=== PATIENT | male | born 1985 | race Caucasian/White ===

== ENCOUNTER 2020-08-22 15:07 | Emergency (ER) | payer SELFPAY | END 2020-08-22 18:47 | disposition left against medical advice (07) | PROVIDERS: Emergency Provider Emergency Medicine | DX: Z20.2 Contact with and (suspected) exposure to infections with a predominantly sexual mode of transmission (principal) ==

== ENCOUNTER 2020-08-22 19:02 | Emergency (ER) | payer OTHER, SELFPAY ==
[2020-08-22 19:57] VITALS: BP 140/72; PULSE 68; RESP 16; TEMP 36.6; O2SAT 98; BMI 33.0
[2020-08-22 20:23] LABS: Appearance Urine CLEAR; Color Urine YELLOW; Glucose Urine UA NEG (NEG); Leukocyte Esterase Urine NEG (NEG); Nitrite Urine NEG (NEG); Specific Gravity - Urine >= 1.030 (1.005-1.025); Urine Blood TRACE (NEG); Urine Ketones NEG (NEG); Urine Protein NEG (NEG-TRACE)
[2020-08-22 20:28] LABS: Bacteria Urine TRACE /LPF; RBC Urine 0-2 /HPF (0); WBC Urine 0 /HPF (0-4)
--- NOTE | 2020-08-22 22:01 | ED.MALEGU ---
HPI - Male Genitourinary General Chief complaint: Urogenital-Male Stated complaint: STD testing Time Seen by Provider: 08/22/20 21:05 Source: patient Mode of arrival: ambulatory History of Present Illness HPI Narrative: This is a 34-year-old male without significant past medical history who presents with penile drainage for the past 2 days without associated fevers, chills, scrotal pain and states that he knows Dennis have been engaging in anal sexual relations. Related Data Allergies Allergy/AdvReac Type Severity Reaction Status Date / Time No Known Allergies Allergy Verified 08/22/20 20:00 Review of Systems Review of Systems: Pertinent positives and negatives as stated in HPI 10 point review of systems is otherwise negative. PMFSH Past Medical History Source: nursing notes reviewed Medical History Bipolar 1 disorder Social History Social History Advance Directives: No Advance Directives Information Provided: Yes Physical Exam Vital Signs: Vital Signs: Last Vital Signs Temp 97.9 F 08/22/20 19:57 Pulse 68 08/22/20 19:57 Resp 16 08/22/20 19:57 BP 140/72 H 08/22/20 19:57 Pulse Ox 98 08/22/20 19:57 Body Mass Index 33.0 VITAL SIGNS: Reviewed. GENERAL: Well developed, well nourished, in no acute distress. LUNGS: Normal breath sounds. No adventitious sounds or accessory muscle use. SpO2<98> CARDIOVASCULAR: Regular rate and rhythm without noted murmurs ABDOMEN: Soft, non-tender, non-distended with bowel sounds. MUSCULOSKELETAL: No tenderness, deformities, or effusions noted on gross inspection. : deferred NEUROLOGIC: Alert and oriented x 4. Course Course Course Narrative: This is a 34-year-old male with history and clinical presentation consistent with STI after review of urinalysis is negative for evidence of UTI. Patient was empirically treated instructed to follow up with his primary care provider notify his sexual partners of his treatment. MDM - Male Genitourinary Lab Data Labs: Lab Results 08/22/20 Range/Units 20:10 Urine Color YELLOW Urine Appearance CLEAR Urine pH 6.0 (5.0-8.0) Ur Specific [place] >= 1.030 H (1.005-1.025) Urine Protein NEG (NEG-TRACE) MG/DL Urine Glucose (UA) NEG (NEG) MG/DL Urine Ketones NEG (NEG) MG/DL Urine Blood TRACE (NEG) Urine Nitrite NEG (NEG) Ur Leukocyte Esterase NEG (NEG) Urine RBC 0-2 (0) /HPF Urine WBC 0 (0-4) /HPF Ur Squamous Epith Cells NONE /LPF Urine Bacteria TRACE /LPF Discharge Plan Discharge Clinical Impression: Discharge from penis Patient Disposition: Home, Self-Care Instructions: Sexually Transmitted Diseases (ED) Additional Instructions: Resume all home medications. Must notify your sexual partners regarding your treatment this evening and follow up with her primary care provider for results. Referrals: Physician,Unknown [Primary Care Provider] - 2 days
[2020-08-22] MEDS: cefTRIAXone sodium 500 MG, Lidocaine HCl 1 % MPF 1 ML IM (22:29)
[2020-08-22] MEDS: Azithromycin 500 MG TABLET 1000 MG PO (22:36)
[2020-08-24 09:57] LABS: C. trachomatis RNA TMA NOT DETECTED (NOT DETECTED); N. gonorrhoeae RNA TMA NOT DETECTED (NOT DETECTED)
== END 2020-08-22 22:42 | disposition home or self-care (01) ==
PROVIDERS: Emergency Provider Student in an Organized Health Care Education/Training Program
DX: R36.9 Urethral discharge, unspecified (principal); Z20.2 Contact with and (suspected) exposure to infections with a predominantly sexual mode of transmission
CPT/HCPCS: 36415; 81001; 87491; 87591; 96372; 99284; J0696

== ENCOUNTER 2020-10-03 16:58 | Emergency (ER) | payer OTHER, SELFPAY ==
--- NOTE | ~2020-10-03 | CT_ITS ---
EXAMINATION: CT HEAD WITHOUT CONTRAST CLINICAL INFORMATION: Head injury 2 days ago. Complaint of headaches with unsteady gait. COMPARISON: None TECHNIQUE: Contiguous axial imaging was performed from the skull base to vertex without intravenous administration of contrast. This CT examination was performed using dose optimization techniques as appropriate, variously including the following: *Automated exposure control *Adjustment of mA and/or kV according to patient size (this includes techniques or standardized protocols for targeted exams where dose is matched to indication/reason for exam; i.e. extremities or head) *Use of iterative reconstruction technique DLP: 705 mGy-cm FINDINGS: There is no evidence of acute intracranial hemorrhage or territorial infarction. No abnormal mass effect or midline shift is seen. Baltazar to white matter differentiation is well preserved. No extra-axial fluid collections are identified. The ventricles are normal in size. There is no abnormal attenuation within the brain parenchyma. The osseous structures and soft tissues are normal. The mastoid air cells and visualized portions of the paranasal sinuses are well aerated. CT/CT head/brain wo con IMPRESSION: No acute intracranial pathology.
[2020-10-03 17:11] VITALS: BP 109/73; PULSE 69; RESP 18; TEMP 36.9; O2SAT 98; BMI 33.0
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
[2020-10-03 18:38] LABS: MANUAL DIFF FLAG NO
[2020-10-03 18:43] LABS: Basophils Absolute Auto 0.1 X10*3/uL (0.0-0.2); Basophils Percent Auto 0.7 % (0-2); Eosinophils Absolute Auto 0.3 X10*3/uL (0.0-0.4); Eosinophils Percent Auto 3.1 % (0-4); Hematocrit 44.5 % (42-52); Hemoglobin 15.1 g/dl (14.0-18.0); Imm Gran Abs Auto 0.03 X10*3/uL (0.00-0.03); Imm Gran Pct Auto 0.3 % (0.0-0.4); Lymphocytes Percent Auto 40.5 % (20-40); Mean Corpuscular HGB Conc 33.9 g/dl (31.0-36.0); Mean Corpuscular Hemoglobin 29.8 pg (27.0-33.0); Mean Corpuscular Volume 87.9 fL (80-98); Mean Platelet Volume 9.9 fL (9.4-12.4); Monocytes Absolute Auto 0.7 X10*3/uL (0.1-1.2); Monocytes Percent Auto 7.1 % (2-11); Neutrophils Absolute Auto 4.7 X10*3/uL (2.0-8.3); Neutrophils Percent Auto 48.3 % (45-73); Platelet Count 201 X10*3/uL (160-400); Red Blood Count 5.06 X10*6/uL (4.60-5.80); Red Cell Distribution Width 12.2 % (11.0-16.0); White Blood Count 9.8 X10*3/uL (4.8-10.8)
[2020-10-03 18:59] VITALS: BP 127/70; PULSE 65; RESP 18; TEMP 36.7; O2SAT 98
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
[2020-10-03 19:15] LABS: Alanine Aminotransferase 54 U/L (0-40); Albumin Level 4.8 g/dL (3.5-5.0); Alkaline Phosphatase 65 U/L (39-117); Anion Gap 13 (12-20); Aspartate Amino Transferase 36 U/L (5-37); Bilirubin Direct < 0.2 mg/dL (0.0-0.5); Bilirubin Total 0.5 mg/dL (0.0-1.0); Blood Urea Nitrogen 11 mg/dL (9-16); Calcium 9.6 mg/dL (8.4-10.2); Carbon Dioxide 30 mmol/L (22-29); Chloride 100 mmol/L (96-108); Creatinine Clr Calc Pharmacy 166.6; Estimated Glomerular Filt Rate > 60; Glucose Random 87 mg/dL (60-115); Magnesium 2.1 mg/dL (1.6-2.6); Potassium 4.3 mmol/L (3.3-5.1); Sodium 139 mmol/L (135-145); Total Protein 7.6 g/dL (6.5-8.0)
[2020-10-03 20:00] VITALS: BP 121/85; PULSE 72; RESP 18; O2SAT 98
[2020-10-03 20:04] LABS: Glucose Urine UA NEG (NEG); Leukocyte Esterase Urine NEG (NEG); Nitrite Urine NEG (NEG); PH 6.5 (5.0-8.0); Specific Gravity - Urine 1.025 (1.005-1.025); Urine Blood TRACE (NEG); Urine Ketones NEG (NEG); Urine Protein NEG (NEG-TRACE)
[2020-10-03 20:21] LABS: Appearance Urine HAZY; Color Urine YELLOW
[2020-10-03 20:27] LABS: Amorphous Sediment Urine 3+ /LPF; Mucus Urine TRACE /LPF; Squamous Epithelial Cell Urine TRACE /LPF; WBC Urine 0-2 /HPF (0-4)
[2020-10-03 20:30] LABS: Amphetamine Screen Urine Not Detected (Not Detect); Barbiturates, Urine Not Detected (Not Detect); Benzodiazepines Screen Urine Not Detected (Not Detect); Cannabinoid Screen Urine POSITIVE (Not Detect); Cocaine Screen Urine POSITIVE (Not Detect); Opiate Screen Urine Not Detected (Not Detect); Phencyclidine Screen Urine Not Detected (Not Detect)
== END 2020-10-03 20:29 | disposition home or self-care (01) ==
PROVIDERS: Emergency Provider Emergency Medicine
DX: R25.3 Fasciculation (principal); S06.0X0A Concussion without loss of consciousness, initial encounter; W22.09XA Striking against other stationary object, initial encounter; F31.9 Bipolar disorder, unspecified; F14.10 Cocaine abuse, uncomplicated; F17.200 Nicotine dependence, unspecified, uncomplicated; F12.90 Cannabis use, unspecified, uncomplicated; Y93.9 Activity, unspecified; Y92.032 Bedroom in apartment as the place of occurrence of the external cause; Y99.9 Unspecified external cause status
CPT/HCPCS: 36415; 70450; 80048; 80076; 80307; 81001; 81003; 83735; 85025; 99284

== ENCOUNTER 2020-10-07 10:40 | Emergency (ER) | payer OTHER, SELFPAY ==
[2020-10-07 10:57] VITALS: BP 127/74; PULSE 76; RESP 16; TEMP 36.4; O2SAT 97; BMI 33.0
--- NOTE | 2020-10-07 11:08 | ED.GENADULT ---
HPI - General Adult General Chief complaint: General Medical Stated complaint: FOLLOW UP CONCUSSION Time Seen by Provider: 10/07/20 10:52 Source: patient Mode of arrival: ambulatory History of Present Illness HPI narrative: 34-year-old male with a recent past medical history of , bipolar disorder, concussion seen in our ED on 10/03/[address], presenting to the ED for medical clearance to return back to work. Reports symptomatic improvement. Does report fluctuation in mood swings which he has had in the past which he was seeing a therapist for many years ago, however, seems to have resurfaced now. Also reports Valium he was prescribed for diffuse body twitching/stuttering was aiding in symptoms, requesting refill. Denies headache, visual change/loss, nausea/vomiting, numbness, tingling, weakness Onset (ago): day(s) Related Data Previous Rx's Medication Instructions Recorded diazepam [Valium] 2 mg PO BID #5 tab 10/03/20 Allergies Allergy/AdvReac Type Severity Reaction Status Date / Time No Known Allergies Allergy Verified 08/22/20 20:00 Review of Systems Review of Systems: Constitutional: No Fever, No Chills, No Fatigue, No Malaise ENT/Mouth: No Ear Pain, No sore throat, No Rhinorrhea Eyes: No Eye Pain, No Vision Changes Gastrointestinal: No Nausea, No Vomiting Musculoskeletal: No joint pain, No Myalgias Skin: No Skin Lesions, No rash Neuro: No Weakness, No Numbness, No Paresthesias, No Loss of Consciousness, No Dizziness, No Headache Psych: No Anxiety/Panic Neurologic: Denies Abnormal speech present [facility] Past Medical History Attestation statement: The following information was validated with the patient. Medical History (Updated 10/07/20 @ 11:20 by KARTIK Clifford) Bipolar 1 disorder History of substance abuse Social History Social History Advance Directives: No Advance Directives Information Provided: No Physical Exam Vital Signs: Vital Signs: Last Vital Signs Temp 97.5 F 10/07/20 10:57 Pulse 76 10/07/20 10:57 Resp 16 10/07/20 10:57 BP 127/74 10/07/20 10:57 Pulse Ox 97 10/07/20 10:57 Body Mass Index 33.0 Const: General: cooperative, healthy appearing, comfortable, no acute distress, well developed, alert, awake and Physically active Orientation/consciousness: patient oriented x3 Limitations: no limitations HENMT: Head: Yes normal to inspection Ears: hearing grossly normal bilaterally General nose exam: Normal external nose present Face and sinus: Yes normal facial exam Mouth: Normal oral and palatal mucosa present Throat: Yes posterior oropharynx normal Eyes: General: appearance normal, both eyes and all related structures Pupils: Equal, round and reactive pupils present EOM: EOMs intact bilaterally Neck: Neck: Yes normal visual inspection and Yes no meningeal signs Resp: Effort & Inspection: normal respiratory effort Cardio: Rate: regular rate Skin: Rashes: no rashes Wounds: no wounds Neuro: General: patient oriented x3, gait normal, tone normal, moves all extremities, no meningeal signs, no focal motor deficits and CN's II-XI intact bilaterally Cranial nerves: Yes Equal, round and reactive pupils present Cognition (Neuro): normal cognition Speech: No Abnormal speech present Gait exam (Neuro): Normal gait present Motor exam (neuro): 5/5 motor strength present throughout Extrem: General: Yes normal to inspection Medical Decision Making MDM Narrative Medical decision making narrative: 34-year-old male with a recent past medical history of , bipolar disorder, concussion seen in our ED on 10/03/[address], presenting to the ED for medical clearance to return back to work. On exam VSS, NAD/well-appearing, no focal neuro deficits, atraumatic. Patient clear to removed return to work, likely post concussive syndrome/acute on chronic anxiety/mood disorder or drug-induced mood changes Head CT and labs reviewed from 10/03 that were WNL Discussed with patient that he needs to follow-up with PCP. Unlikely ICH/metabolic/infectious etiology Discharge Plan Discharge Clinical Impression: Encounter for medical screening examination Patient Disposition: Home, Self-Care Instructions: Normal Exam (ED) Additional Instructions: Follow-up with your primary care doctor, injury therapist Take Tylenol & Motrin at home for headache If you develop constant worsening headache, lightheadedness/dizziness, persistent or unremitting nausea/vomiting return to the ED Prescriptions: No Action diazepam [Valium] 2 mg tablet 2 mg PO BID Qty: 5 RF: 0 Referrals: Physician,Unknown [Primary Care Provider] - 2 days Stand Alone Forms: Work/School Release
== END 2020-10-07 11:34 | disposition home or self-care (01) ==
PROVIDERS: Emergency Provider Emergency Medicine Emergency Medical Services
DX: Z02.79 Encounter for issue of other medical certificate (principal); F19.10 Other psychoactive substance abuse, uncomplicated
CPT/HCPCS: 99283

== ENCOUNTER 2020-10-09 03:15 | Emergency (ER) | payer OTHER, SELFPAY ==
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
[2020-10-09 03:22] VITALS: BP 134/86; PULSE 76; RESP 20; O2SAT 98; BMI 26.4
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
[2020-10-09 03:57] VITALS: RESP 18
== END 2020-10-09 05:05 | disposition home or self-care (01) ==
PROVIDERS: Emergency Provider Emergency Medicine
DX: S09.90XA Unspecified injury of head, initial encounter (principal); S01.311A Laceration without foreign body of right ear, initial encounter; X99.0XXA Assault by sharp glass, initial encounter; Y93.9 Activity, unspecified; Y92.9 Unspecified place or not applicable; Y99.9 Unspecified external cause status; F17.200 Nicotine dependence, unspecified, uncomplicated; F12.90 Cannabis use, unspecified, uncomplicated; F19.10 Other psychoactive substance abuse, uncomplicated
CPT/HCPCS: 70450; 99284

== ENCOUNTER 2021-05-23 07:22 | Outpatient (REF) | payer OTHER, SELFPAY ==
[2021-05-23 08:03] LABS: COVID-19 Test Negative (Negative)
== END 2021-05-23 07:23 | disposition home or self-care (01) ==
LOC: HO.LAB 07:22
PROVIDERS: Visit Provider Internal Medicine
DX: Z20.822 Contact with and (suspected) exposure to COVID-19 (principal)
CPT/HCPCS: 36415; 87635; C9803

== ENCOUNTER 2021-07-01 16:29 | Emergency (ER) | payer SELFPAY ==
[2021-07-01 16:38] VITALS: BP 155/86; PULSE 111; RESP 18; TEMP 36.7; O2SAT 99; BMI 33.0
--- NOTE | 2021-07-01 16:49 | ED_ITS ---
HPI - Wound/Laceration General Chief Complaint: Wound/Laceration Stated Complaint: arm lac Time Seen by Provider: 07/01/21 16:44 Source: patient Mode of arrival: ambulatory Limitations: no limitations History of Present Illness HPI narrative: 35 yo male here with laceration to right forearm after a broken dish cut him. Tetanus status unknown Related Data Previous Rx's Medication Instructions Recorded diazepam 2 mg tablet (Valium) 2 mg PO BID #5 tab 10/03/20 Allergies Allergy/AdvReac Type Severity Reaction Status Date / Time No Known Allergies Allergy Verified 08/22/20 20:00 Review of Systems Review of Systems: Yes all other systems are reviewed and are negative Constitutional: Constitutional: Reports no additional constitutional complaints, Denies body ache(s), Denies chills, Denies fever(s), Denies headache(s) and Denies weakness Eyes: Eyes: Reports no additional eye complaints and Denies change in vision ENT: Reports system reviewed and no additional complaints, except as documented, Denies dizziness, Denies headache(s), Denies nasal congestion, Denies nasal discharge and Denies neck pain Cardiovascular: Cardiovascular: Reports no additional cardiovascular complaints, Denies chest pain, Denies leg edema and Denies dyspnea Respiratory: Respiratory: Reports no additional respiratory complaints, Denies cough and Denies dyspnea Gastrointestinal: Gastrointestinal: Reports no additional gastrointestinal complaints, Denies abdominal pain, Denies diarrhea, Denies nausea and Denies vomiting Genitourinary: Genitourinary: Denies urinary incontinence Musculoskeletal: Musculoskeletal: Reports no additional musculoskeletal complaints, Denies back pain, Denies arthralgias, Denies joint swelling, Denies neck pain, Denies numbness and Denies tingling Integumentary/Breasts: Skin/Breast: Reports system reviewed and no additional complaints, except as docu and Denies rash Neurologic: Reports system reviewed and no additional complaints, except as documented, Denies Abnormal speech present, Denies dizziness, Denies headache(s), Denies numbness, Denies tingling and Denies weakness PMFSH Past Medical History Attestation statement: The following information was validated with the patient. Source: old records reviewed and nursing notes reviewed Medical History Bipolar 1 disorder History of substance abuse Social History Social History Substance Use Type: Marijuana Advance Directives: No Advance Directives Information Provided: No Physical Exam Vital Signs: Vital Signs: Last Vital Signs Temp 98.0 F 07/01/21 16:38 Pulse 84 07/01/21 17:43 Resp 17 07/01/21 17:43 BP 155/86 H 07/01/21 16:38 Pulse Ox 97 07/01/21 17:43 BMI result Body Mass Index 33.0 Const: General: cooperative, healthy appearing, comfortable and no acute distress Orientation/consciousness: patient oriented x3 Limitations: no limitations HENMT: Head: Yes normal to inspection Ears: hearing grossly normal bilaterally General nose exam: Normal external nose present Face and sinus: Yes normal facial exam Mouth: Normal oral and palatal mucosa present Throat: Yes posterior oropharynx normal Eyes: General: appearance normal, both eyes and all related structures Pupils: Equal, round and reactive pupils present Neck: Neck: Yes normal visual inspection Chest: Chest palpation & inspection: normal inspection of the chest Resp: Effort & Inspection: normal respiratory effort Auscultation: clear to auscultation bilaterally Cardio: Rate: regular rate Rhythm: regular rhythm Peripheral pulses: Peripheral pulses 2+ throughout GI: Inspection: Yes normal to inspection Palpation (GI): Soft to palpation and nontender Auscultation: normal bowel sounds Back/Spine/Pelvis: Thoracic/Lumbar Spine: thoracic and lumbar spine normal to inspection Skin: General skin exam: no rashes or lesions noted Neuro: General: patient oriented x3, no focal motor deficits and normal sensation to monofilament Cranial nerves: Yes Equal, round and reactive pupils present Cognition (Neuro): normal cognition Speech: No Abnormal speech present Gait exam (Neuro): Normal gait present Motor exam (neuro): 5/5 motor strength present throughout Extrem: General: Yes normal to inspection Elbow/forearm/wrist images: 1. laceration 8cm into sub Q tissue. bleeding co ntrolled Course Course Course Narrative: Lacerations to right forearm from a broken plate. Neurovascular intact distally See wound repair note. Will update tetanus. Reviewed worrisome signs and symptoms when to return to the emergency department. Comfortable discharge home. MDM - Wound/Laceration Medical Records Attestation: I reviewed the patient's medical records. Lab Data Attestation: I reviewed the patient's lab results. Procedures Laceration Laceration 1: Site: upper extremity Side (If applicable): right Size (cm): 8 Description: linear and clean Depth: simple, single layer (involves SQ tissue ) Local Anesthetic: lidocaine 2% Amount of anesthesia used (mL): 10 Pre-repair: wound explored, irrigated extensively and deep structures intact Skin layer closed with: vicryl Size (cm): 4-0 Number of sutures: 10 Technique: simple, interrupted Subcutaneous layer closed with: chromic gut Size: 4-0 Number of sutures: 6 Technique: simple, interrupted Discharge Plan Discharge Clinical Impression: Laceration Patient Disposition: Home, Self-Care Instructions: Laceration (ED) Additional Instructions: Sutures out in 10 days Water can run over the sutures but no soaking in water Limit use of the right upper extremity for a few days Prescriptions: No Action diazepam [Valium] 2 mg tablet 2 mg PO BID Qty: 5 RF: 0 Interventions: ED Discharge Assessment Last Done: 07/01/21 17:50 Discharge Date/Time: 07/01/21 17:51
[2021-07-01] MEDS: Lidocaine HCl 2 % MPF 5 ML VIAL SUBCUT ×2 (16:54)
[2021-07-01] MEDS: Diphth,Pertus(ACell),Tet Adult 0.5 ML SYRINGE IM (17:40)
[2021-07-01 17:43] VITALS: PULSE 84; RESP 17; O2SAT 97
== END 2021-07-01 17:51 | disposition home or self-care (01) ==
LOC: HO.ED 17:05
PROVIDERS: Emergency Provider Emergency Medicine
DX: S51.811A Laceration without foreign body of right forearm, initial encounter (principal); W25.XXXA Contact with sharp glass, initial encounter; Y93.9 Activity, unspecified; Y92.9 Unspecified place or not applicable; Y99.9 Unspecified external cause status
CPT/HCPCS: 12034; 90471; 90715; 99283; 99284

== ENCOUNTER 2021-08-01 09:36 | Outpatient (REF) | payer SELFPAY ==
[2021-08-01 10:50] LABS: Binax Internal Control QC Valid; Binax Now Covid-19 Ag Negative (Negative)
== END 2021-08-01 09:37 | disposition home or self-care (01) ==
LOC: HO.LAB 09:36
PROVIDERS: Visit Provider Internal Medicine
DX: Z20.822 Contact with and (suspected) exposure to COVID-19 (principal)
CPT/HCPCS: C9803

== ENCOUNTER 2021-08-07 10:44 | Outpatient (REF) | payer OTHER, SELFPAY ==
[2021-08-07 12:00] LABS: COVID-19 Test Negative (Negative)
== END 2021-08-07 10:45 | disposition home or self-care (01) ==
LOC: HO.LAB 10:44
PROVIDERS: Visit Provider Internal Medicine
DX: Z20.822 Contact with and (suspected) exposure to COVID-19 (principal)
CPT/HCPCS: 87635; C9803

== ENCOUNTER 2023-05-13 05:58 | Emergency (ER) | payer MEDICAID, SELFPAY ==
--- NOTE | ~2023-05-13 | CT_ITS ---
EXAMINATION: CT HEAD WITHOUT CONTRAST CLINICAL INFORMATION: Headache, head strike. COMPARISON: Head CT from 10/09/2020 TECHNIQUE: Contiguous axial imaging was performed from the skull base to vertex without intravenous administration of contrast. This CT examination was performed using dose optimization techniques as appropriate, variously including the following: *Automated exposure control *Adjustment of mA and/or kV according to patient size (this includes techniques or standardized protocols for targeted exams where dose is matched to indication/reason for exam; i.e. extremities or head) *Use of iterative reconstruction technique DLP: 762 mGy-cm FINDINGS: The brain parenchyma has normal attenuation. The lares-white matter differentiation is well preserved. No evidence of an acute major vascular territory infarction. No intracranial hemorrhage, extra-axial fluid collection, focal mass effect or midline shift. The ventricles have normal size and configuration; no hydrocephalus. The brainstem and cerebellum have a normal appearance. The cerebellar tonsils are in normal position. The calvarium is intact. There appears to be a small subgaleal hematoma in the parietal region near the vertex of the scalp (image 73, series 2). The paranasal sinuses, mastoid air cells and middle ear cavities are well aerated. The orbits and globes are unremarkable. The temporomandibular joints are normal. CT/CT head/brain wo IV con IMPRESSION: * No intracranial hemorrhage or other acute intracranial pathology. * Small subgaleal hematoma is seen near the vertex of the scalp (image 73, series 2).
[2023-05-13 06:09] VITALS: BP 135/81; PULSE 66; RESP 12; TEMP 36.6; O2SAT 93; BMI 34.3
[2023-05-13 07:18] LABS: MANUAL DIFF FLAG NO
[2023-05-13 07:26] LABS: Basophils Absolute Auto 0.1 X10*3/uL (0.0-0.2); Basophils Percent Auto 0.9 % (0-2); Eosinophils Absolute Auto 0.4 X10*3/uL (0.0-0.4); Eosinophils Percent Auto 4.8 % (0-4); Hematocrit 43.8 % (42.0-52.0); Hemoglobin 15.5 g/dl (14.0-18.0); Imm Gran Abs Auto 0.03 X10*3/uL (0.00-0.03); Imm Gran Pct Auto 0.4 % (0.0-0.4); Lymphocytes Absolute Auto 3.8 X10*3/uL (1.2-4.9); Lymphocytes Percent Auto 46.9 % (20-40); Mean Corpuscular HGB Conc 35.4 g/dl (31.0-36.0); Mean Corpuscular Hemoglobin 30.2 pg (27.0-33.0); Mean Corpuscular Volume 85.4 fL (80.0-98.0); Mean Platelet Volume 10.2 fL (9.4-12.4); Monocytes Absolute Auto 0.6 X10*3/uL (0.1-1.2); Monocytes Percent Auto 7.7 % (2-11); Neutrophils Absolute Auto 3.2 x10*3/uL (2.0-8.3); Neutrophils Percent Auto 39.3 % (45-73); Platelet Count 190 X10*3/uL (160-400); Red Blood Count 5.13 X10*6/uL (4.60-5.80); Red Cell Distribution Width 12.3 % (11.0-16.0); White Blood Count 8.2 X10*3/uL (4.8-10.8)
[2023-05-13 07:50] LABS: Alanine Aminotransferase 19 U/L (0-40); Albumin Level 4.4 g/dL (3.5-5.0); Alkaline Phosphatase 75 U/L (39-117); Anion Gap 12 (12-20); Aspartate Amino Transferase 17 U/L (5-37); Bilirubin Total 0.4 mg/dL (0.0-1.0); Blood Urea Nitrogen 13 mg/dL (9-16); Calcium 9.3 mg/dL (8.4-10.2); Carbon Dioxide 25 mmol/L (22-29); Chloride 107 mmol/L (96-108); Creatinine Clr Calc Pharmacy 163.1; Estimated Glomerular Filt Rate > 60; Glucose Random 109 mg/dL (60-115); Potassium 4.1 mmol/L (3.3-5.1); Sodium 140 mmol/L (135-145); Total Protein 7.3 g/dL (6.5-8.0)
[2023-05-13 11:07] VITALS: BP 121/80; PULSE 60; RESP 18; O2SAT 98
[2023-05-13] MEDS: 0.9 % Sodium Chloride 1,000 ML 999 ML IV (12:03)
--- NOTE | 2023-05-13 12:20 | ED_ITS ---
HPI - General Adult General Chief complaint: General Medical Stated complaint: head pain, dizziness Time Seen by Provider: 05/13/23 11:31 Source: patient and RN notes reviewed Mode of arrival: ambulatory Limitations: no limitations History of Present Illness HPI narrative: This is a 37-year-old male presenting to the emergency department with complaints of head pressure, blurred vision x2 weeks. Patient states that 2 weeks ago he struck the top of his head while at work. Denies loss of consciousness. He states that intermittently he has had left-sided head pain and blurred vision. He states that yesterday he then hit his head again. He denies loss of consciousness after this head injury. He states that he is feeling shaky and is also having some stuttering problems. He states that he has a history of concussions and states that his symptoms feel similar. He also reports history of migraines and states that his pain is much different than migraines he has had in the past. Patient also endorsing nasal congestion and runny nose. Also reports some mild shortness of breath since yesterday. He has been taking aspirin for his symptoms which has provided him with minimal relief. MD complaint: Headache, blurred vision, shakiness Onset (ago): week(s) Radiation: non-radiation Quality: aching Pain Consistency: constant Relieving factors: none Exacerbating factors: none Associated symptoms: denies other symptoms Treatments prior to arrival: none Related Data Previous Rx's Medication Instructions Recorded diazepam 2 mg tablet (Valium) 2 mg PO BID #5 tabs 10/03/20 Allergies Allergy/AdvReac Type Severity Reaction Status Date / Time No Known Allergies Allergy Verified 08/22/20 20:00 Review of Systems 2 Review of Systems: Yes all other systems are reviewed and are negative Constitutional: Constitutional: Reports as per [facility] Past Medical History Medical History Bipolar 1 disorder History of substance abuse Social History Social History Substance Use Type: Marijuana Advance Directives: No Advance Directives Information Provided: No Physical Exam ED Vital Signs: Vital Signs - 24 hr 05/13/23 06:09 05/13/23 11:07 05/13/23 14:12 Temperature 97.8 F Pulse Rate 66 60 57 Respiratory Rate 12 18 16 Blood Pressure 135/81 121/80 99/62 Pulse Oximetry 93 98 99 Oxygen Delivery Method Room Air Room Air Room Air BMI result Body Mass Index 34.3 Const General: cooperative, comfortable and no acute distress Orientation/consciousness: patient oriented x3 Limitations: no limitations [facility] Head: Yes normal to inspection, Yes normocephalic and Yes atraumatic Ears: hearing grossly normal bilaterally General nose exam: Normal external nose present Face and sinus: Yes normal facial exam Mouth: Normal oral and palatal mucosa present, oropharynx normal and moist mucous membranes Throat: Yes posterior oropharynx normal Eyes General: appearance normal, both eyes and all related structures Eyelids: Yes eyelids normal Conjunctivae: conjunctivae normal Sclerae: sclerae normal Pupils: Equal, round and reactive pupils present EOM: EOMs intact bilaterally Neck Neck: Yes normal visual inspection, Yes full ROM and Yes no lymphadenopathy Lymphatic: no lymphadenopathy noted Chest Chest palpation & inspection: normal inspection of the chest Resp Effort & Inspection: normal respiratory effort and able to speak in complete sentences Auscultation: clear to auscultation bilaterally, no crackles, no rales, no rhonchi and no wheezes Cardio Rate: regular rate Rhythm: regular rhythm Heart sounds: S1 normal heart sound present and S2 normal heart sound present GI Inspection: Yes normal to inspection Skin General skin exam: no rashes or lesions noted Trauma: no lacerations or abrasions Wounds: no wounds Neuro General: patient oriented x3 and moves all extremities Cranial nerves: Yes CN's II-XII intact bilaterally, Yes Facial sensation intact/muscles of mastication intact, Yes Equal, round and reactive pupils present, Yes Nystagmus not present, Yes Ability to bilaterally rotate head present and Yes Ability to bilaterally elevate shoulders present Cognition (Neuro): normal cognition Motor exam (neuro): 5/5 motor strength present throughout and Pronator motor function not present Coordination: [id number] test normal and [id number]-[id number] test normal Extrem General: Yes normal to inspection Right upper extremity: normal to inspection Left upper extremity: normal to inspection Right lower extremity: normal to inspection Left lower extremity: normal to inspection Course Reevaluation(s) Reevaluation #1: CT head returns, no intracranial hemorrhage or acute intracranial pathology. There is a small hematoma seen at the vertex of the scalp, otherwise unremarkable. Discussed findings with patient. He is having 8/10 headache pain. Will medicate patient with IV Toradol, Reglan, and Benadryl. Time: 13:18 Reevaluation #2: Patient feeling much better after receiving migraine cocktail. Discussed return precautions. Patient understands and agrees with plan. Advised to perform physical and mental rest. Patient understands and agrees with plan. Advised to follow-up with primary care physician. Patient understands agrees with plan. Patient stable for discharge. Time: 15:15 Medications Administered Discontinued Medications Generic Name Dose Route Start Last Admin Trade Name Freq PRN Reason Stop Dose Admin Diphenhydramine HCl 50 mg 05/13/23 13:16 05/13/23 13:56 Diphenhydramine Hcl 50 Mg/Ml Vial IVPUSH 05/13/23 13:17 50 mg ONCE ONE Administration Sodium Chloride 1,000 mls @ 999 mls/hr 05/13/23 11:48 05/13/23 13:16 Ns IV 05/13/23 12:48 Infused .Q1H1M ONE Infusion Ketorolac Tromethamine 30 mg 05/13/23 13:16 05/13/23 13:56 Ketorolac Tromethamine 30 Mg/Ml Vial IVPUSH 05/13/23 13:17 30 mg ONCE ONE Administration Metoclopramide HCl 10 mg 05/13/23 13:16 05/13/23 13:55 Metoclopramide Hcl 10 Mg/2 Ml Vial IVPUSH 05/13/23 13:17 10 mg ONCE ONE Administration Medical Decision Making Medical Decision Making MDM Narrative: This is a 37-year-old male presenting to the emergency department for evaluation of head pressure and blurred vision. He states that he hit his head 2 weeks ago and has had intermittent headaches since. He also reports that he struck his head yesterday again. No loss of consciousness. On examination, vital signs within normal limits. Patient is neurologically intact however upon ambulation patient is very wobbly. Given 2 episodes of head injury, will obtain CT head for further evaluation. Differential Diagnosis Differential Diagnoses: The differential diagnosis associated with the presentation includes Admission/Observation Consideration of admission/observation: Escalation of care including admission/observation considered Lab Data MDM Lab Attestation statement: I reviewed the patient's lab results. 05/13/23 07:13 05/13/23 07:13 Labs: Lab Results 05/13/23 05/13/23 Range/Units 07:13 12:03 WBC 8.2 (4.8-10.8) X10*3/uL RBC 5.13 (4.60-5.80) X10*6/uL Hgb 15.5 (14.0-18.0) g/dl Hct 43.8 (42.0-52.0) % MCV 85.4 (80.0-98.0) fL MCH 30.2 (27.0-33.0) pg MCHC 35.4 (31.0-36.0) g/dl RDW 12.3 (11.0-16.0) % Plt Count 190 (160-400) X10*3/uL MPV 10.2 (9.4-12.4) fL Immature Gran % (Auto) 0.4 (0.0-0.4) % Neut % (Auto) 39.3 L (45-73) % Lymph % (Auto) 46.9 H (20-40) % [place] % (Auto) 7.7 (2-11) % Eos % (Auto) 4.8 H (0-4) % Baso % (Auto) 0.9 (0-2) % Lymph # (Auto) 3.8 (1.2-4.9) X10*3/uL [place] # (Auto) 0.6 (0.1-1.2) X10*3/uL Eos # (Auto) 0.4 (0.0-0.4) X10*3/uL Baso # (Auto) 0.1 (0.0-0.2) X10*3/uL Abs Immat Gran (auto) 0.03 (0.00-0.03) X10*3/uL Absolute Neuts (auto) 3.2 (2.0-8.3) x10*3/uL Absolute Nucleated RBC 0.000 (0.0-0.012) X10*3/uL Nucleated RBC % (auto) 0.0 (0.0-0.2) /100WBC Sodium 140 (135-145) mmol/L Potassium 4.1 (3.3-5.1) mmol/L Chloride 107 (96-108) mmol/L Carbon Dioxide 25 (22-29) mmol/L Anion Gap 12 (12-20) BUN 13 (9-16) mg/dL Creatinine 0.85 (0.5-1.4) mg/dL Estim Creat Clear Calc 163.1 Estimated GFR > 60 Random Glucose 109 (60-115) mg/dL Calcium 9.3 (8.4-10.2) mg/dL Total Bilirubin 0.4 (0.0-1.0) mg/dL AST 17 (5-37) U/L ALT 19 (0-40) U/L Alkaline Phosphatase 75 (39-117) U/L Total Protein 7.3 (6.5-8.0) g/dL Albumin 4.4 (3.5-5.0) g/dL Influenza Type A (PCR) NEGATIVE (Negative) Influenza Type B (PCR) NEGATIVE (Negative) RSV RNA Qual (PCR) NEGATIVE (Negative) SARS-CoV-2 RNA (RT-PCR) NEGATIVE (Negative) Radiology Impression Discussion of test interpretation with radiology: I have reviewed the radiologist's reading. External Record Review External record reviewed: Inpatient record, Office record, Outpatient record, Prior outpatient labs, Prior outpatient radiology, Primary care record and Outside ED record Discharge Plan Discharge Clinical Impression: Closed head injury, Headache Patient Disposition: Home, Self-Care Instructions: Head Injury (ED), Acute Headache (ED) Additional Instructions: Your head CT was normal today. You tested negative for flu, RSV, and COVID. Your labs were reassuring today. Your symptoms improved after receiving a migraine cocktail. This contained Toradol (which is a type of NSAID), with Reglan, and Benadryl. Avoid ibuprofen or naproxen until the end of the day. You may take Tylenol as needed for pain. Please rest, drink plenty of fluids. Physical and mental rest will help heal your brain faster. Please call your primary care physician regarding this visit. If any new or worsening symptoms occur including but not limited to worsening headache, dizziness, changes in vision, weakness, numbness, chest pain or shortness of breath, please return for re-evaluation. Prescriptions: No Action diazepam [Valium] 2 mg tablet 2 mg PO BID Qty: 5 0RF
[2023-05-13 12:46] LABS: Influenza A PCR NEGATIVE (Negative); Influenza B PCR NEGATIVE (Negative); Resp Syncy Virus RNA Qual PCR NEGATIVE (Negative); SARS COV2 PCR INHOUSE NEGATIVE (Negative)
[2023-05-13] MEDS: Metoclopramide HCl 10 MG/2 ML VIAL IVPUSH (13:55)
[2023-05-13] MEDS: diphenhydrAMINE HCL 50 MG/ML VIAL IVPUSH (13:56)
[2023-05-13] MEDS: Ketorolac Tromethamine 30 MG/ML VIAL IVPUSH (13:56)
[2023-05-13 14:12] VITALS: BP 99/62; PULSE 57; RESP 16; O2SAT 99
[2023-05-13 15:30] VITALS: BP 120/71; PULSE 61; RESP 18; TEMP 36.6; O2SAT 99
== END 2023-05-13 15:36 | disposition home or self-care (01) ==
PROVIDERS: Physician Assistant Medical; Emergency Provider Emergency Medicine
DX: S09.90XA Unspecified injury of head, initial encounter (principal); R51.9 Headache, unspecified; R42 Dizziness and giddiness; H53.8 Other visual disturbances; Y29.XXXA Contact with blunt object, undetermined intent, initial encounter; Y93.9 Activity, unspecified; Y92.9 Unspecified place or not applicable; Y99.0 Civilian activity done for income or pay; Z20.822 Contact with and (suspected) exposure to COVID-19; Z20.828 Contact with and (suspected) exposure to other viral communicable diseases
CPT/HCPCS: 0241U; 36415; 70450; 80053; 85025; 96361; 96374; 96375; 99284; J1200; J1885; J2765

== ENCOUNTER 2024-08-04 11:48 | Emergency (ER) | payer OTHER, SELFPAY ==
--- NOTE | ~2024-08-04 | XR_ITS ---
EXAMINATION: XR CHEST CLINICAL INFORMATION: coughing. pneumonia? COMPARISON: X-ray dated June 16, 2018. TECHNIQUE: Frontal view of the chest was obtained. FINDINGS: No consolidation pleural effusion or pneumothorax. No hyperinflation. Cardiomediastinal silhouette is normal in size. Osseous structures are grossly intact. XR/XR chest 1V IMPRESSION: No acute airspace disease. Stable chest. Electronically signed by: Asael Penaloza MD 08/04/2024 12:39 PM EST
[2024-08-04 12:09] VITALS: BP 125/55; PULSE 65; RESP 20; TEMP 36.3; O2SAT 98; BMI 34.3
--- NOTE | 2024-08-04 12:11 | ED.GENADULT ---
HPI - General Adult General Chief complaint: Upper Respiratory Symptoms Stated complaint: Facial pressure, blurry vision, nausea Time Seen by Provider: 08/04/24 13:48 Source: patient Mode of arrival: ambulatory Limitations: no limitations History of Present Illness ED Provider: Jatin Schwartz HPI narrative: 38-year-old male presents to ED for headache, nasal congestion, coughing, chills, and body aches for 3 days. Patient denies any shortness of breath. Patient denies any recent long travel, recent surgery, calf pain, pleurisy, abdominal pain, weakness, nausea, vomiting, or any genitourinary symptoms. Related Data Previous Rx's ?Medication ?Instructions ?Recorded diazepam 2 mg tablet (Valium) 2 mg PO BID #5 tabs 10/03/20 Allergies Allergy/AdvReac Type Severity Reaction Status Date / Time No Known Allergies Allergy Verified 08/04/24 12:11 Review of Systems Review of Systems: Headache, congestion, cough, chills, body aches Yes all other systems are reviewed and are negative [facility] Past Medical History Medical History Bipolar 1 disorder History of substance abuse Social History Social History Substance Use Type: Marijuana Advance Directives: No Advance Directives Information Provided: Yes Physical Exam ED Vital Signs: Vital Signs - 24 hr 08/04/24 12:09 08/04/24 14:48 Temperature 97.3 F 97.3 F Pulse Rate 65 65 Respiratory Rate 20 20 Blood Pressure 125/55 L 125/55 L Pulse Oximetry 98 98 Oxygen Delivery Method Room Air Room Air BMI result Body Mass Index 34.3 Const General: cooperative, healthy appearing, comfortable, no acute distress, well developed, alert and awake Orientation/consciousness: patient oriented x3 HENMT Head: Yes normal to inspection, Yes No palpable skull fracture present, Yes normocephalic and Yes atraumatic Ears: hearing grossly normal bilaterally, external ears normal, TM's normal bilaterally, TM normal on the right, TM normal on the left, EAC's normal, mastoids normal and no periauricular adenopathy Throat: Yes posterior oropharynx normal, Yes tonsils normal and Yes uvula midline Eyes General: appearance normal, both eyes and all related structures Neck Neck: Yes normal visual inspection, Yes full ROM, Yes no lymphadenopathy, Yes no meningeal signs, Yes trachea midline, Yes supple, No anterior neck swelling and No tender Chest Chest palpation & inspection: normal inspection of the chest and normal palpation of entire chest wall Resp Effort & Inspection: normal respiratory effort and able to speak in complete sentences Auscultation: clear to auscultation bilaterally Cardio Jugular venous distension: no JVD Heart sounds: S1 normal heart sound present and S2 normal heart sound present GI Inspection: Yes normal to inspection Palpation (GI): Soft to palpation, not firm, nontender, no guarding and not rigid General: Yes no CVA tenderness Back/Spine/Pelvis Back: no CVA tenderness and No back tenderness Skin General skin exam: no rashes or lesions noted, elasticity normal and turgor normal Neuro General: patient oriented x3, gait normal, tone normal, moves all extremities, Normal light touch and pain sensation, no meningeal signs, no focal motor deficits, CN's II-XI intact bilaterally and normal sensation to monofilament Extrem General: Yes normal to inspection, Yes full ROM and Yes capillary refill normal Psych Appearance: grossly normal, well kempt and not disheveled Course Course Course Narrative: RME; 38 year male presents to ED for coughing, body aches, chills, facial sinus pressure, fever, constipation, and night sweats. SARS srpe ordered Medical Decision Making Medical Decision Making [facility] Narrative: 38-year-old male presents to the ED with URI symptoms. Patient states headache congestion cough chills body aches for the past 2 days. Patient is SARs strep influenza COVID negative. Chest x-ray negative pneumonia. Lungs are clear. Oral cavity normal. Patient explained worrisome signs and informed to return to the ED immediately. Not suspecting pericarditis, myocarditis, PE, CHF, peritonsillar abscess, Ji's angina, epiglottitis, respiratory failure, hypoxia, or any other concerning symptoms. Differential Diagnosis Differential Diagnoses: The differential diagnosis associated with the presentation includes (Pneumonia COVID SARs strep) Admission/Observation Consideration of admission/observation: Escalation of care including admission/observation considered Lab Data [facility] Lab Attestation statement: I reviewed the patient's lab results. Labs: Lab Results 08/04/24 Range/Units 12:40 Influenza Type A (PCR) NEGATIVE (Negative) Influenza Type B (PCR) NEGATIVE (Negative) RSV RNA Qual (PCR) NEGATIVE (Negative) SARS-CoV-2 RNA (RT-PCR) NEGATIVE (Negative) S. pyogenes GrpA [place] Negative (Negative) Independent Interpretation I performed an independent interpretation of an: Plain X-Ray Radiology Impression Discussion of test interpretation with radiology: I have reviewed the radiologist's reading. Independent Historian Clinical information obtained from an independent historian. History obtained from or confirmed by: Other (Patient) Discharge Plan Discharge Clinical Impression: Upper respiratory infection Patient Disposition: Home, Self-Care Instructions: Upper Respiratory Infection (ED) Additional Instructions: Recommend follow-up with primary care provider. Return to the ED immediately for any chest pain, shortness of breath, weakness, dizziness, drooling, change in voice, sore throat, neck swelling or any other concerning symptoms. Prescriptions: No Action diazepam [Valium] 2 mg tablet 2 mg PO BID Qty: 5 0RF Stand Alone Forms: Work/School Release Interventions: ED Discharge Assessment Last Done: 08/04/24 14:48 Discharge Date/Time: 08/04/24 14:49 Print Language: Kittitian
[2024-08-04 13:11] LABS: IDNOW Serial# 58CA691E; Strep A Nucleic Acid Negative (Negative)
[2024-08-04 14:17] LABS: Influenza A PCR NEGATIVE (Negative); Influenza B PCR NEGATIVE (Negative); Resp Syncy Virus RNA Qual PCR NEGATIVE (Negative); SARS COV2 PCR INHOUSE NEGATIVE (Negative)
[2024-08-04 14:48] VITALS: BP 125/55; PULSE 65; RESP 20; TEMP 36.3; O2SAT 98
== END 2024-08-04 14:49 | disposition home or self-care (01) ==
PROVIDERS: Physician Assistant; Emergency Provider Emergency Medicine
DX: J06.9 Acute upper respiratory infection, unspecified (principal); R05.9 Cough, unspecified; R51.9 Headache, unspecified; Z03.818 Encounter for observation for suspected exposure to other biological agents ruled out
CPT/HCPCS: 0241U; 71045; 87651; 99282; 99283

== ENCOUNTER → 2024-08-04 12:10 | Outpatient (BNV) | payer OTHER, SELFPAY | PROVIDERS: Visit Provider Radiology Diagnostic Radiology | DX: R05.9 Cough, unspecified (principal) | CPT/HCPCS: 71045 ==

== ENCOUNTER 2024-09-01 06:48 | Emergency (ER) | payer OTHER, SELFPAY ==
[2024-09-01 07:01] VITALS: BP 148/86; PULSE 77; RESP 20; TEMP 37.4; O2SAT 98; BMI 35.2
--- OUTSIDE RECORDS SUMMARY | 2024-09-01 08:09 | XMS_ITS | Clinical Summary ---
Author Organization [facility] Address [address] [place] [id number] Phone Care Team Providers Care Corporate Controller Name Role Phone Unavailable Primary Care Provider Unavailabl e Immunizations Immunization Administration Dates Next Due DTP 04/19/1993, 0,02/28/1989,04/30,02/29/1988 Hep B, ped/adol 04/12/2005,05/07/2002,05/21/2001 MMR 01/18/2000,04/19/1993 Meningococcal Conj (Menactra) MCV4P 03/07/2006 OPV 04/19/1993, 0,02/28/1989,04/30,02/29/1988 Td (adult) (MBL), 2 Lf tetan us toxoid, PF, adsorbed 01/18/2000 Tdap 07/10/2007 Family History Relation Name Status Comments Other Alive Family h/o: Ali ve and well Social History Tobacco Use Types Packs/Day Years Used Date Smoking Tobacco: Never Assessed Sex and Gender Information Value Date Recorded Sex Assigned at Not on file Legal Sex Male 4:36 PM EDT Gender Identity Not on file Sexual Orientation Not on file Plan of Treatment Health Maintenance Due Date Last Done Comments Varicella Vaccines (1 of 2 - 13+ 2-dose series) 12/05/2000 Consider Men B Vaccine (1 of 2 - Bexsero 2-dose series) 2003 DTaP,Tdap,and Td Vaccines (7 - Td or Tdap) 07/10/2017 07/10/2007, 01/18/2000, 04/19/1993, Additional history exists Influenza Vaccines (#1) 2024 COVID-19 Vaccine ( season) 2024 IPV Vaccines Completed 04/19/1993, 02/20, 02/28/1989, Additional history exists MMR Vaccines Completed 01/18/2000, 04/19/1993 Hepatitis B Vaccines Completed 04/12/2005, 05/07/2002, 05/21/2001 Meningococcal Vaccine Completed 03/07/2006 HIB Vaccines Aged Out No longer eligi ble based on patient's age to complete this topic HPV Vaccines Aged Out No longer eligi ble based on patient's age to complete this topic Hepatitis A Vaccines Aged Out No long er eligible based on patient's age to complete this topic Men B Vaccine Aged Out No longer elig ible based on patient's age to complete this topic Pneumococcal Vaccine Aged Out No long er eligible based on patient's age to complete this topic
--- OUTSIDE RECORDS SUMMARY | 2024-09-01 08:09 | XMS_ITS | Encounter Summary ---
Author Organization [facility] Address [address] [place] [address] Phone Care Team Providers Care Hydraulic Jack Adjuster Name Role Phone Trung Roy MD Primary Care Provider [phone] Encounter Details Date Type Department Care Team (Late st Contact Info) Description 03/07/2017 Conversion Encounter [facility] [place] [address] [place] [address] Social History Tobacco Use Types Packs/Day Years Used Date Smoking Tobacco: Never Assessed Sex and Gender Information Value Date Recorded Sex Assigned at Not on file Legal Sex Male 4:36 PM EDT Gender Identity Not on file Sexual Orientation Not on file documented as of this encounter Plan of Treatment Not on file documented as of this encounter Visit Diagnoses Not on filedocumented in this encounter Care Teams Hydraulic Jack Adjuster Relationship Specialty Start Date End Date Trung Roy MD [address] [place] [address] PCP - General 03/01/17 09/05/22 documented as of this encounter
--- OUTSIDE RECORDS SUMMARY | 2024-09-01 08:09 | XMS_ITS | Clinical Summary ---
Author Organization [facility] Address [address] [place] [address] Care Team Providers Care Brake Holder Name Role Phone Luis Angel Rausch MD Primary Care Provider [phone] Allergies No known active allergies Medications citalopram (CeleXA) 10 mg tablet 1 tab at bedtime 02/15/2015 Active naproxen (NAPROSYN) 500 mg tablet Take 1 Tab by mouth 2 times daily (with meals). 11/19/2016 Active OXcarbazepine (TRILEPTAL) 150 mg tablet Take 1 Tab by mouth 2 times daily. 02/15/2015 Active Immunizations Name Administration Dates Next Due Influenza trivalent, with pr eservative (Fluzone; Afluria) 6mo and older 05/22/2011 Td Tetanus diptheria (Tdvax) 7yo and older 03/22 Surgical History Surgery Date Site/Laterality Comments WISDOM TOOTH EXTRACTION PROCEDURE: HISTORICAL WISDOM TEETH EXTRACTION Family History Medical History Relation Name Comments Mental illness Maternal Grandmother Blindness Neg Hx Cataracts Neg Hx Glaucoma Neg Hx Macular degeneration Neg Hx Strabismus Neg Hx Relation Name Status Comments Maternal Grandmother Social History Tobacco Use Types Packs/Day Years Used Date Smoking Tobacco: Some Days Smokeless Tobacco: Never Alcohol Use Standard Drinks/Week Comments Yes 0 (1 standard drink = 0.6 oz pur e alcohol) Sex and Gender Information Value Date Recorded Sex Assigned at Not on file Legal Sex Male 9:51 AM EST Gender Identity Not on file Sexual Orientation Not on file Obstetrics History Plan of Treatment Health Maintenance Due Date Last Done Comments Pneumococcal Vaccine: Pediat rics (0 to 5 Years) and At-Risk Patients (6 to 64 Years) (1 of 2 - PCV) 12/05/1993 Hepatitis B Vaccines (1 of 3 - 19+ 3-dose series) 12/05/2006 DTaP,Tdap,and Td Vaccines (2 - Td or Tdap) 03/22/2013 03/22/2003 Cholesterol Screening (Lipid Panel) 06/19/2022 02/16/2015 Depression Screening 06/19/2022 Social Influencers of Health Screening 06/19/2022 COVID-19 Vaccine (1 - 2023-2 5 season) 2024 Influenza Vaccine (#1) 2024 05/22/2011 HIV Screening Completed 02/15/2015 Hepatitis C Screening Completed 02/15/2015 HIB Vaccines Aged Out No longer eligi ble based on patient's age to complete this topic HPV Vaccines Aged Out No longer eligi ble based on patient's age to complete this topic Hepatitis A Vaccines Aged Out No long er eligible based on patient's age to complete this topic IPV Vaccines Aged Out No longer eligi ble based on patient's age to complete this topic MMR Vaccines Aged Out No longer eligi ble based on patient's age to complete this topic Meningococcal ACWY Vaccine Aged Out N o longer eligible based on patient's age to complete this topic RSV Immunization Patients Un freida 20 months Aged Out No longer eligible b ased on patient's age to complete this topic Varicella Vaccines Aged Out No longer eligible based on patient's age to complete this topic Procedures Procedure Name Priority Date/Time Associated Diagnosis Comments LIPID PANEL Routine 02/16/2015 HEPATITIS C SCREENING Routine 02/15/2015 HIV SCREENING Routine 02/15/2015 from Last 3 Months or Most Recently Relevant to Health Maintenance Results * Lipid panel (02/16/2015) LDL/HDL Ratio 3 0 - 4 Triglycerides 60 0 - 150 mg/dL Cholesterol 142 0 - 200 mg/dL HDL 53 >=40 mg/dL LDL Cholesterol 77 0 - 100 mg/dL Blood Venous blood specimen / Unknown us Historical Provider LAB BLOOD ORDERABLES Shabana l Result * HIV Screening (02/15/2015) HIV Screening Abstracted us Historical Provider HEALTH MAINTENANCE Final Result * Hepatitis C Screening (02/15/2015) Hepatitis C Screening Abstracted us Historical Provider HEALTH MAINTENANCE Final Result from Last 3 Months or Most Recently Relevant to Health Maintenance Care Teams Brake Holder Relationship Specialty Start Date End Date Luis Angel Rausch MD PCP - General Internal Medicine 04/26/11
--- OUTSIDE RECORDS SUMMARY | 2024-09-01 08:09 | XMS_ITS | Clinical Summary ---
Author Organization [facility] Address [address] [facility] [address] [place] [address] Care Team Providers Care Press Operator Printing Name Role Phone Unavailable Primary Care Provider Unavailabl e Encounters Date Type Department Care Team Description 08/04/2024 Travel from Last 3 Months Social History Tobacco Use Types Packs/Day Years Used Date Smoking Tobacco: Never Assessed Sex and Gender Information Value Date Recorded Sex Assigned at Male 05/21/2022 10:23 AM EDT Legal Sex Male 10:23 AM EDT Gender Identity Choose not to disclose 10:23 AM EDT Sexual Orientation Choose not to disclose 2021 10:23 AM EDT Last Filed Vital Signs Vital Sign Reading Time Taken Comments Blood Pressure 130/92 02/01/2021 12:07 AM EDT Pulse 80 02/01/2021 12:07 AM EDT Temperature - - Respiratory Rate - - Oxygen Saturation - - Inhaled Oxygen Concentration - - Weight 116 kg (256 lb) 12/28/2020 12:06 AM EDT Height 185.4 cm (6' 1 ) 12/28/2020 12:06 AM EDT Body Mass Index 33.77 12/28/2020 12:06 AM EDT Plan of Treatment Health Maintenance Due Date Last Done Comments Depression Screening 1987 HIV Screening 1987 Lipid Panel 1987 SDOH Screening 1987 Alcohol/Substance Use Screening 1999 Tobacco Screening 1999 Family Planning (PISQ) 12/05/2002 Hepatitis C Screening 12/05/2005 Hepatitis B Vaccines (1 of 3 - 19+ 3-dose series) 12/05/2006 COVID-19 Vaccine (2023-2 5 season) 2024 01/24/2021, 12/28/2020 Influenza Vaccine (#1) 2024 05/22/2011 DTaP/Tdap/Td Vaccines (3 - T d or Tdap) 07/01/2031 07/01/2021, 10/14/2013, 03/22/2003 Zoster Vaccines (1 of 2) 12/05/2037 RSV Patients and Patients Aged 60 years or older (1 - 1-dose 75+ series) 12/05/2062 HIB Vaccines Aged Out No longer eligi [...] patient's age to complete this topic Meningococcal Vaccine Aged Out No amparo mao eligible based on patient's age to complete this topic Pneumococcal Vaccine: Pediatrics (0 to 5 Years) and At-Risk Patients (6 to 49) Years) Aged Out No longer eligible b ased on patient's age to complete this topic RSV under 20 months Aged Out No longe r eligible based on patient's age to complete this topic Rotavirus Vaccines Aged Out No longer eligible based on patient's age to complete this topic [facility]
--- OUTSIDE RECORDS SUMMARY | 2024-09-01 08:09 | XMS_ITS | Encounter Summary ---
Author Organization [facility] Address [address] [facility] [address] [place] [address] Care Team Providers Care Fur Vault Attendant Name Role Phone Unavailable Primary Care Provider Unavailabl e Encounter Details Date Type Department Care Team (Latest Contact Info) Description 08/04/2024 Travel Social History Tobacco Use Types Packs/Day Years Used Date Smoking Tobacco: Never Assessed Sex and Gender Information Value Date Recorded Sex Assigned at Male 05/21/2022 10:23 AM EDT Legal Sex Male 10:23 AM EDT Gender Identity Choose not to disclose 10:23 AM EDT Sexual Orientation Choose not to disclose 2021 10:23 AM EDT documented as of this encounter Plan of Treatment Not on file documented as of this encounter Visit Diagnoses Not on filedocumented in this encounter
[2024-09-01 08:20] LABS: MANUAL DIFF FLAG NO
[2024-09-01 08:22] LABS: Basophils Absolute Auto 0.1 X10*3/uL (0.0-0.2); Basophils Percent Auto 0.9 % (0-2); Eosinophils Absolute Auto 0.3 X10*3/uL (0.0-0.4); Eosinophils Percent Auto 3.3 % (0-4); Hematocrit 43.3 % (42.0-52.0); Hemoglobin 15.1 g/dl (14.0-18.0); Imm Gran Abs Auto 0.03 X10*3/uL (0.00-0.03); Imm Gran Pct Auto 0.3 % (0.0-0.4); Lymphocytes Absolute Auto 3.8 X10*3/uL (1.2-4.9); Lymphocytes Percent Auto 42.1 % (20-40); Mean Corpuscular HGB Conc 34.9 g/dl (31.0-36.0); Mean Corpuscular Hemoglobin 30.1 pg (27.0-33.0); Mean Corpuscular Volume 86.3 fL (80.0-98.0); Mean Platelet Volume 10.2 fL (9.4-12.4); Monocytes Absolute Auto 0.6 X10*3/uL (0.1-1.2); Monocytes Percent Auto 6.4 % (2-11); Neutrophils Absolute Auto 4.2 x10*3/uL (2.0-8.3); Platelet Count 187 X10*3/uL (160-400); Red Blood Count 5.02 X10*6/uL (4.60-5.80); Red Cell Distribution Width 12.4 % (11.0-16.0)
[2024-09-01 08:42] LABS: Alanine Aminotransferase 26 U/L (0-40); Albumin Level 4.4 g/dL (3.5-5.0); Alkaline Phosphatase 72 U/L (39-117); Anion Gap 10 (12-20); Aspartate Amino Transferase 22 U/L (5-37); Bilirubin Direct 0.1 mg/dL (0.0-0.5); Bilirubin Total 0.4 mg/dL (0.0-1.0); Blood Urea Nitrogen 14 mg/dL (9-16); Calcium 8.9 mg/dL (8.4-10.2); Carbon Dioxide 26 mmol/L (22-29); Chloride 109 mmol/L (96-108); Creatinine Clr Calc Pharmacy 180.8; Estimated Glomerular Filt Rate > 60; Glucose Random 84 mg/dL (60-115); Potassium 4.3 mmol/L (3.3-5.1); Sodium 141 mmol/L (135-145); Total Protein 7.6 g/dL (6.5-8.0)
[2024-09-01 09:29] LABS: Influenza A PCR NEGATIVE (Negative); Influenza B PCR NEGATIVE (Negative); Resp Syncy Virus RNA Qual PCR NEGATIVE (Negative); SARS COV2 PCR INHOUSE NEGATIVE (Negative)
[2024-09-01 10:50] VITALS: BP 126/76; PULSE 78; RESP 18; TEMP 36.4; O2SAT 96
== END 2024-09-01 18:37 | disposition left against medical advice (07) ==
PROVIDERS: Emergency Medicine; Emergency Provider Emergency Medicine
DX: R10.2 Pelvic and perineal pain (principal); R51.9 Headache, unspecified; Z79.899 Other long term (current) drug therapy; Z03.818 Encounter for observation for suspected exposure to other biological agents ruled out
CPT/HCPCS: 0241U; 80048; 80076; 85025; 99281

== ENCOUNTER 2024-11-25 13:03 | Outpatient (AMB) | payer OTHER, SELFPAY ==
[2024-11-25 13:14] VITALS: BP 140/92; PULSE 71; RESP 18; TEMP 36.9; O2SAT 97; BMI 36.3
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
[2024-11-25 14:05] VITALS: BP 138/102
--- OUTSIDE RECORDS SUMMARY | 2024-11-25 14:16 | XMS_ITS | Clinical Summary ---
Author Organization [employer] Address [address] [place] [address] Care Team Providers Care Powerhouse Tender Name Role Phone Unavailable Primary Care Provider Unavailabl e Social History Tobacco Use Types Packs/Day Years [...] patient's age to complete this topic Insurance [employer]
--- OUTSIDE RECORDS SUMMARY | 2024-11-25 14:16 | XMS_ITS | Clinical Summary ---
Author Organization [facility] ity Address [address] [place] [address] Care Team Providers Care Buffer Copper Name Role Phone Luis Angel Rausch MD Primary Care Provider [phone] Allergies No known active allergies Medications citalopram [...] Health Maintenance Due Date Last Done Comments Hepatitis B Vaccines (1 of 3 - 19+ 3-dose series) 12/05/2006 Pneumococcal Vaccine: Pediat rics (0 to 5 Years) and At-Risk Patients (6 to 64 Years) (1 of 2 - PCV) 12/05/2006 DTaP,Tdap,and Td Vaccines (2 - Td or Tdap) 03/22/2013 03/22/2003 Cholesterol Screening (Lipid Panel) 06/19/2022 02/16/2015 Depression Screening 06/19/2022 Social Influencers of Health Screening 06/19/2022 COVID-19 Vaccine (1 - 2023-2 5 season) 2024 Influenza Vaccine (Season Ended) 2025 05/22/20 11 HIV Screening Completed 02/15/2015 Hepatitis C Screening [...] patient's age to complete this topic Meningococcal B Vaccine Aged Out No l onger eligible based on patient's age to complete [...] * HIV Screening (02/15/2015) HIV Screening Abstracted Historical Provider HEALTH MAINTENANCE Final Result * Hepatitis C Screening (02/15/2015) Hepatitis C Screening Abstracted Historical Provider HEALTH MAINTENANCE Final Result from Last 3 Months or Most Recently Relevant to Health Maintenance Care Teams Buffer Copper Relationship Specialty Start Date End Date Luis Angel Rausch MD PCP - General Internal Medicine 04/26/11
== END 2024-11-25 14:32 | disposition home or self-care (01) ==
DX: R10.9 Unspecified abdominal pain (principal); H53.8 Other visual disturbances; G43.909 Migraine, unspecified, not intractable, without status migrainosus; F41.0 Panic disorder [episodic paroxysmal anxiety]; M25.561 Pain in right knee; M25.562 Pain in left knee; R40.0 Somnolence; R06.83 Snoring; F41.9 Anxiety disorder, unspecified; R03.0 Elevated blood-pressure reading, without diagnosis of hypertension

== ENCOUNTER → 2024-11-25 13:03 | Outpatient (BNVA) | payer OTHER, SELFPAY | DX: Z76.89 Persons encountering health services in other specified circumstances (principal); R10.12 Left upper quadrant pain; R10.31 Right lower quadrant pain; H53.8 Other visual disturbances; G43.909 Migraine, unspecified, not intractable, without status migrainosus; F41.0 Panic disorder [episodic paroxysmal anxiety]; M25.561 Pain in right knee; M25.562 Pain in left knee; R40.0 Somnolence; R06.83 Snoring; F41.9 Anxiety disorder, unspecified; R03.0 Elevated blood-pressure reading, without diagnosis of hypertension; Z79.899 Other long term (current) drug therapy | CPT/HCPCS: 96127 ==

== ENCOUNTER 2024-12-17 12:37 | Outpatient (REF) | payer OTHER, SELFPAY ==
--- OUTSIDE RECORDS SUMMARY | 2024-12-17 12:42 | XMS_ITS | Clinical Summary ---
Author Organization [facility] ity Address [address] [place] [address] Care Team Providers Care Division Officer Weapons Department Name Role Phone Luis Angel Rausch MD Primary Care Provider [phone] Allergies No known active allergies Medications citalopram [...] Recently Relevant to Health Maintenance Care Teams Division Officer Weapons Department Relationship Specialty Start Date End Date Luis Angel Rausch MD PCP - General Internal Medicine 04/26/11
[2024-12-17 12:50] LABS: MANUAL DIFF FLAG NO
[2024-12-17 13:28] LABS: Basophils Absolute Auto 0.1 X10*3/uL (0.0-0.2); Basophils Percent Auto 0.6 % (0-2); Eosinophils Absolute Auto 0.2 X10*3/uL (0.0-0.4); Eosinophils Percent Auto 2.2 % (0-4); Hematocrit 44.4 % (42.0-52.0); Hemoglobin 15.4 g/dl (14.0-18.0); Imm Gran Abs Auto 0.04 X10*3/uL (0.00-0.03); Imm Gran Pct Auto 0.4 % (0.0-0.4); Lymphocytes Absolute Auto 4.1 X10*3/uL (1.2-4.9); Lymphocytes Percent Auto 36.8 % (20-40); Mean Corpuscular HGB Conc 34.7 g/dl (31.0-36.0); Mean Corpuscular Hemoglobin 29.6 pg (27.0-33.0); Mean Corpuscular Volume 85.2 fL (80.0-98.0); Mean Platelet Volume 10.3 fL (9.4-12.4); Monocytes Absolute Auto 0.7 X10*3/uL (0.1-1.2); Monocytes Percent Auto 6.7 % (2-11); Neutrophils Absolute Auto 5.9 x10*3/uL (2.0-8.3); Neutrophils Percent Auto 53.3 % (45-73); Platelet Count 223 X10*3/uL (160-400); Red Blood Count 5.21 X10*6/uL (4.60-5.80); Red Cell Distribution Width 12.3 % (11.0-16.0); White Blood Count 11.1 X10*3/uL (4.8-10.8)
[2024-12-17 13:50] LABS: Appearance Urine Clear; Color Urine Yellow; Glucose Urine UA Negative (Negative); Leukocyte Esterase Urine Trace (Negative); Nitrite Urine Negative (Negative); PH 5.5 (5.0-9.0); UMIC TRIGGER UACC YES; Urine Blood Trace (Negative); Urine Ketones Negative (Negative); Urine Protein Negative (Neg-Trace)
[2024-12-17 13:59] LABS: Bacteria Urine None Seen (None Seen); Hyaline Casts Urine 0-2 /LPF (0-2); Squamous Epithelial Cell Urine 0-2 /HPF (0-2); WBC Urine 0-5 /HPF (0-5)
[2024-12-17 14:01] LABS: Alanine Aminotransferase 28 U/L (0-40); Albumin Level 4.7 g/dL (3.5-5.0); Alkaline Phosphatase 71 U/L (39-117); Amylase 70 U/L (28-100); Anion Gap 11 (12-20); Aspartate Amino Transferase 24 U/L (5-37); Bilirubin Total 0.6 mg/dL (0.0-1.0); Blood Urea Nitrogen 8 mg/dL (9-16); Calcium 9.5 mg/dL (8.4-10.2); Carbon Dioxide 26 mmol/L (22-29); Chloride 107 mmol/L (96-108); Cholesterol 172 mg/dL (<200); Estimated Glomerular Filt Rate > 60; Glucose Fasting 81 mg/dL (60-99); HDL Cholesterol 40 mg/dL (>40); LDL Cholesterol Calculated 109 mg/dL (<100); Lipase 20 U/L (8-78); Potassium 3.9 mmol/L (3.3-5.1); Sodium 140 mmol/L (135-145); Total Protein 7.5 g/dL (6.5-8.0); Triglycerides 117 mg/dL (<150)
[2024-12-17 14:20] LABS: TSH reflex Free T4 0.62 uIU/mL (0.32-4.0); Vitamin D 25-OH Total 12.3 ng/mL (>30)
== END 2024-12-17 12:38 | disposition home or self-care (01) ==
LOC: HO.LAB 12:37
DX: Z00.00 Encounter for general adult medical examination without abnormal findings (principal); R10.9 Unspecified abdominal pain
CPT/HCPCS: 36415; 80053; 80061; 81001; 82150; 82306; 83690; 84443; 85025

== ENCOUNTER 2024-12-28 15:15 | Outpatient (REF) | payer OTHER, SELFPAY ==
--- NOTE | ~2024-12-28 | XR_ITS ---
Exam: Three-view bilateral knees INDICATION: Knee pain Comparison right knee from November 11, 2006 TECHNIQUE: AP, lateral, sunrise view lower extremity joint, bilateral knee FINDINGS: LEFT KNEE: There is mild narrowing of the medial and lateral joint spaces. There are small marginal osteophytes along the lateral joint line and inferior pole patella. There is no joint effusion. RIGHT KNEE: There is mild to moderate narrowing of the lateral joint space and mild narrowing of the medial joint space, new since the prior. There are also new moderate sized marginal osteophytes along the medial joint line. Small marginal osteophytes are present involving patella. There is no joint effusion. XR/XR Knee Jeremy 3V Impression: [id number] degenerative changes consistent with osteoarthritis. Electronically signed by: Peter Vick MD 12/28/2024 05:01 PM EDT
--- OUTSIDE RECORDS SUMMARY | 2024-12-28 17:02 | XMS_ITS | Clinical Summary ---
Author Organization [facility] ity Address [address] [place] [address] Care Team Providers Care Demolitionist Name Role Phone Luis Angel Rausch MD Primary Care Provider [phone] Allergies No known active allergies Medications citalopram [...] Recently Relevant to Health Maintenance Care Teams Demolitionist Relationship Specialty Start Date End Date Luis Angel Rausch MD PCP - General Internal Medicine 04/26/11
== END 2024-12-28 15:16 | disposition home or self-care (01) ==
LOC: HO.XRAY 15:15
DX: M25.561 Pain in right knee (principal); M25.562 Pain in left knee
CPT/HCPCS: 73562

== ENCOUNTER → 2024-12-28 15:21 | Outpatient (BNV) | payer OTHER, SELFPAY | PROVIDERS: Visit Provider Radiology Diagnostic Radiology | DX: M17.0 Bilateral primary osteoarthritis of knee (principal) | CPT/HCPCS: 73562 ==

== ENCOUNTER 2024-12-28 15:50 | Outpatient (AMB) | payer OTHER, SELFPAY ==
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
[2024-12-28 15:52] VITALS: BP 136/83; PULSE 86; RESP 20; TEMP 36.5; O2SAT 98; BMI 36.3
[2024-12-28 16:38] VITALS: BP 130/86
== END 2024-12-28 16:46 | disposition home or self-care (01) ==
LOC: HO.HMCH 15:50
DX: R10.9 Unspecified abdominal pain (principal); H53.8 Other visual disturbances; G43.909 Migraine, unspecified, not intractable, without status migrainosus; F41.0 Panic disorder [episodic paroxysmal anxiety]; M25.561 Pain in right knee; M25.562 Pain in left knee; R40.0 Somnolence; R06.83 Snoring; F41.9 Anxiety disorder, unspecified; R03.0 Elevated blood-pressure reading, without diagnosis of hypertension; E55.9 Vitamin D deficiency, unspecified; J30.1 Allergic rhinitis due to pollen; H10.13 Acute atopic conjunctivitis, bilateral; E78.00 Pure hypercholesterolemia, unspecified

== ENCOUNTER 2025-01-11 07:54 | Outpatient (REF) | payer OTHER, SELFPAY ==
--- NOTE | ~2025-01-11 | US_ITS ---
CLINICAL HISTORY: R10.9 - Unspecified abdominal pain Ultrasound of the abdomen Comparison: None available Findings: The liver is normal in size, measuring 14.3cm. Normal echogenicity without focal lesions. Normal flow is visualized within the portal vein. No intrahepatic biliary ductal dilatation. No cholelithiasis. No gallbladder wall thickening or pericholecystic fluid. Negative Parra's sign. The common bile duct is normal, measuring 0.3cm. Unremarkable limited evaluation of the pancreas. The right kidney is normal in echogenicity and size, measuring 11.0cm. No nephrolithiasis or hydronephrosis. The left kidney is normal echogenicity and size, measuring 10.8cm. No nephrolithiasis or hydronephrosis. The spleen is without focal lesions and normal in size, measuring 10.5cm. The aorta and IVC are unremarkable. No ascites. Impression: Normal abdominal ultrasound. This document has been electronically signed by: Winter Damon MD on 01/12/2025 13:50:25
--- OUTSIDE RECORDS SUMMARY | 2025-01-11 07:58 | XMS_ITS | Clinical Summary ---
Author Organization [facility] ity Address [address] [place] [address] Care Team Providers Care Cut Roll Machine Offbearer Name Role Phone Luis Angel Rausch MD Primary Care Provider [phone] Allergies No known active allergies Medications citalopram [...] Recently Relevant to Health Maintenance Care Teams Cut Roll Machine Offbearer Relationship Specialty Start Date End Date Luis Angel Rausch MD PCP - General Internal Medicine 04/26/11
== END 2025-01-11 07:55 | disposition home or self-care (01) ==
LOC: HO.US 07:54
DX: R10.9 Unspecified abdominal pain (principal); R06.83 Snoring; R40.0 Somnolence
CPT/HCPCS: 76700

== ENCOUNTER → 2025-01-11 07:56 | Outpatient (BNV) | payer OTHER, SELFPAY | PROVIDERS: Visit Provider Radiology Diagnostic Radiology | DX: R10.9 Unspecified abdominal pain (principal) | CPT/HCPCS: 76700 ==